=== PATIENT | female | born 1980 | race Caucasian/White ===

== ENCOUNTER → 2022-10-17 | Outpatient (CLI) | payer OTHER | LOC: M WUC 13:00 | PROVIDERS: ATTEND Physician Assistant | DX: M77.32 Calcaneal spur, left foot (principal) ==

== ENCOUNTER 2023-11-11 08:56 | Emergency (ER) | payer OTHER ==
[~2023-11-11] VITALS: Ht 170.2 cm; Wt 5.1 kg
[2023-11-11 08:57] VITALS: BP 131/85
[2023-11-11] MEDS ORDERED: SYNT150T (09:07)
[2023-11-11] MEDS ORDERED: HYDR-3490 (09:07)
[2023-11-11 09:51] VITALS: TEMP 101.1; O2SAT 98
[2023-11-11] MEDS: ACETAMINOPHEN 325 MG TAB PO ONE (10:53)
[2023-11-11] MEDS: KETOROLAC 60MG 2ML VIAL IM ONE (10:53)
[2023-11-11] MEDS: LIDOCAINE 5% (LIDODERM) PATCH TD ONE (10:54)
[2023-11-11] MEDS ORDERED: VALI5TAB PO (11:49)
[2023-11-11] MEDS ORDERED: LIDO5DIS41 TOP (11:49)
== END 2023-11-11 12:39 | disposition home or self-care (01) ==
LOC: M ED 08:56
DX: S29.012A Strain of muscle and tendon of back wall of thorax, initial encounter (principal); Y92.9 Unspecified place or not applicable; Y93.9 Activity, unspecified; Y99.9 Unspecified external cause status; I10 Essential (primary) hypertension; E03.9 Hypothyroidism, unspecified; Z79.899 Other long term (current) drug therapy
CPT/HCPCS: 72072; 96372; 99282; J1885

== ENCOUNTER → 2024-10-20 | Outpatient (CLI) | payer OTHER ==
[~2024-10-20] MED LIST: HYDR-3490; LIDO1ADH93 TOP; SYNT150T; VALI5TAB PO
== END ==
LOC: M WHC 08:40
PROVIDERS: ATTEND Family Medicine
DX: Z12.31 Encounter for screening mammogram for malignant neoplasm of breast (principal); R92.313 Mammographic fatty tissue density, bilateral breasts